=== PATIENT | male | born 1940 | race Caucasian/White ===

== ENCOUNTER 2016-10-20 08:59 | Emergency (ER) | payer MEDICARE ==
[2016-10-20 09:39] LABS: HEMOGLOBIN 16.2 gm/dl (14.0-17.5); WHITE BLOOD COUNT 5.4 K/UL (4.5-11.0)
[2016-10-20 10:00] LABS: BUN/CREATININE RATIO 16 (0-10)
== END 2016-10-20 12:30 | disposition home or self-care (01) ==
LOC: ER1 08:59
PROVIDERS: Family Medicine
DX: N13.2 Hydronephrosis with renal and ureteral calculous obstruction (principal); Z88.8 Allergy status to other drugs, medicaments and biological substances; Z79.82 Long term (current) use of aspirin; Z79.899 Other long term (current) drug therapy
CPT/HCPCS: 36415; 71010; 80053; 81001; 83690; 85025; 93005; 96374; 96375; 99284; J2270; J2405

== ENCOUNTER 2021-01-29 18:57 | Emergency (ER) | payer MEDICARE, OTHER ==
[~2021-01-29 18:57] MED LIST: ATORVASTATIN CA40 MG PO; COREG 3.125M3.125 MG PO; DESYREL 50 MG T50 MG PO; DOXYCYCLINE MO100 MG PO; EFFIENT10 MG PO; ELIQUIS5 MG PO; LISINOPRIL20 MG PO; NORCO 5-325 TA1 EACH PO; PLAVIX 75 MG TA75 MG PO; PROTONIX 20 MG20 MG PO; TYLENOL 500 MG500 MG PO
[2021-01-30 02:36] LABS: HEMOGLOBIN 14.5 gm/dl (14.0-17.5); RED BLOOD COUNT 4.37 M/UL (4.20-5.50)
[2021-01-30 03:03] LABS: BUN/CREATININE RATIO 13 (0-10)
== END 2021-01-30 04:11 | disposition home or self-care (01) ==
LOC: ER1 18:57
PROVIDERS: Student in an Organized Health Care Education/Training Program
DX: U07.1 COVID-19 (principal); Z23 Encounter for immunization; I25.2 Old myocardial infarction; I10 Essential (primary) hypertension; Z95.1 Presence of aortocoronary bypass graft
CPT/HCPCS: 80053; 85025; 93005; 99284; M0243; U0002

== ENCOUNTER → 2021-12-10 | Outpatient (CLI) | payer MEDICARE, OTHER ==
[2021-12-10 14:02] LABS: CRYPTOCOCCUS NEOFORMANS/GATTII Not Detected (Negative); CYTOMEGALOVIRUS Not Detected (Negative); ENTEROVIRUS Not Detected (Negative); ESCHERICHIA COLI K1 Not Detected (Negative); HAEMOPHILUS INFLUENZAE Not Detected (Negative); HERPES SIMPLEX VIRUS 1 Not Detected (Negative); HERPES SIMPLEX VIRUS 2 Not Detected (Negative); HUMAN HERPESVIRUS 6 Not Detected (Negative); HUMAN PARECHOVIRUS Not Detected (Negative); LISTERIA MONOCYTOGENES Not Detected (Negative); NEISERRIA MENINGITIDIS Not Detected (Negative); STREPTOCOCCUS AGALACTIAE Not Detected (Negative); STREPTOCOCCUS PNEUMONIAE Not Detected (Negative); VARICELLA ZOSTER VIRUS Not Detected (Negative)
[2021-12-10 14:48] LABS: WBC (AUTOMATED 4 10^3 (0-5)
[2021-12-10 14:49] LABS: WBC (AUTOMATED 2 10^3 (0-5)
[2021-12-10 15:04] LABS: GLUCOSE,CSF 63 mg/dL (50-80); TOTAL PROTEIN,CSF 45 mg/dL (20-45)
[2021-12-12 15:10] LABS: CSF IGG INDEX 0.5 (0.0-0.7); IMMUNOGLOBULIN G, QN, SERUM 654 mg/dL (603-1613)
[2021-12-13 15:11] LABS: MYELIN BASIC PROTEIN, CSF 8.7 ng/mL (0.0-5.4)
== END ==
LOC: RAD 11:00
PROVIDERS: Nurse Practitioner Family
DX: R94.02 Abnormal brain scan (principal)
CPT/HCPCS: 82040; 82164; 82784; 82945; 83873; 83916; 84157; 87015; 87070; 87116; 87205; 87210; 87483; 89051

== ENCOUNTER → 2021-12-25 | Outpatient (CLI) | payer MEDICARE | LOC: MRI 11:00 | DX: M54.2 Cervicalgia (principal); M51.26 Other intervertebral disc displacement, lumbar region; M51.27 Other intervertebral disc displacement, lumbosacral region; M48.07 Spinal stenosis, lumbosacral region; M51.24 Other intervertebral disc displacement, thoracic region; M47.814 Spondylosis without myelopathy or radiculopathy, thoracic region; M47.812 Spondylosis without myelopathy or radiculopathy, cervical region; M48.02 Spinal stenosis, cervical region | CPT/HCPCS: 72156; 72157; 72158; A9577 ==